=== PATIENT | female | born 1955 ===

== ENCOUNTER 2018-03-03 05:24 | Day surgery (SDC) | payer MEDICARE, MEDICAID ==
[2018-03-03] VITALS (11 sets, daily range): BP systolic 111–146; BP diastolic 56–93
[~2018-03-03] VITALS: Ht 152.4 cm; Wt 92.5 kg
[~2018-03-03 05:24] MED LIST: ALLOPURINOL300 M1 ORAL; BENICAR HCT 401 EAC1 ORAL; CARVEDILOL25 MG ORAL; COLCRYS0.6 M1 PO; JANUVIA25 MG ORAL; PLAVIX75 MG ORAL; TRULICITY1.5 MG/0.5 SQ; ZOCOR20 M1 ORAL
[2018-03-03] MEDS ORDERED: fentaNYL 100 mcg/2 mL IV ONE (07:00)
[2018-03-03] MEDS ORDERED: Midazolam 2mg/2ml Inj ONE (07:00)
[2018-03-03] MEDS ORDERED: cefOXitin Sod 1 GM in D5W 55 ML IVPB ONE (07:00)
[2018-03-03] MEDS ORDERED: Lidocaine 1% MPF 10mg/ml 5ml ONE (07:01)
[2018-03-03] MEDS ORDERED: Ketorolac 30mg Inj ONE ×2 (07:01→07:11)
[2018-03-03] MEDS ORDERED: Propofol 200mg/20ml IV ONE (07:01)
[2018-03-03] MEDS ORDERED: Dyna-Hex 2% Top Sol 2oz TOPIC ONE (07:04)
[2018-03-03] MEDS ORDERED: cefOXitin 1gm Inj ONE (07:04)
[2018-03-03] MEDS ORDERED: NS Irrig 1000ml ONE (07:30)
[2018-03-03] MEDS ORDERED: Sterile Water For Irrig 2000ml IRRIG ONE (07:30)
[2018-03-03] MEDS ORDERED: LR 1000ml ONE (07:30)
--- NOTE | 2018-03-03 07:44 | Anethesia Preoperative Eval ---
Anesthesia Pre-op PMH/ROS General Date of Evaluation: Mar 03, 2018 Time of Evaluation: 07:38 Anesthesiologist: Mark ASA Score: ASA 3 Mallampati Score Class I : Soft palate, uvula, fauces, pillars visible Class II: Soft palate, uvula, fauces visible Class III: Soft palate, base of uvula visible Class IV: Only hard plate visible Mallampati Classification: Class III Surgeon: Ambrosio Diagnosis: Postmenopausal bleeding Surgical Procedure: D&C Hysteroscopy Anesthesia History: none Social History: smoking - h/o Family History: no anesthesia problems Allergies: Coded Allergies: IODINE (Verified Allergy, Severe, "passed out", 03/02/18) Medications: see eMAR Patient NPO?: Yes Past Medical History Cardiovascular: Reports: HTN; Denies: CAD, NC, valve dz, arrhythmia, other Pulmonary: Reports: SAYRA; Denies: asthma, COPD, other Gastrointestinal/Genitourinary: Reports: GERD, CRI, other; Denies: ESRD Neurologic/Psychiatric: Reports: depression/anxiety; Denies: dementia, CVA, TIA, other Endocrine: Reports: DM - poorly controlled; Denies: hypothyroidism, steroids, other HEENT: Reports: cataract (L), cataract (R) - sp Sx; Denies: glaucoma, [place] (L), [place] (R), other Hematology/Immune: Reports: bleeding disorder - anticoagulated on plavix; Denies: anemia, DVT, other Musculoskeletal/Integumentary: Reports: OA; Denies: RA, DJD, DDD, edema, other Other: obesity PMH Narrative: as above PSxH Narrative: see H&P Anesthesia Pre-op Phys. Exam Physician Exam Last Vital Signs Date Time Temp Pulse Resp B/P (MAP) Pulse Ox O2 Delivery O2 Flow Rate FiO2 03/03/18 05:54 98.4 77 17 138/84 98 Room Air Constitutional: NAD Neurologic: CN 2-12 intact Cardiovascular: RRR, no M/R/G Respiratory: CTA Gastrointestinal: other - obesity Airway Exam Mallampati Score: Class III MO: limited Neck: short ROM: limited Teeth: intact Dentures: no upper, no lower Anesthesia Pre-op A/P Labs see chart Studies Pre-op Studies: EKG - SR Risk Assessment & Plan Assessment: ASA 3 Plan: GA with LMA Status Change Before Surgery: No Pre-Antibiotics Drug: Cefoxetin Given Within 1 Hr of Incision: Yes Time Given: 07:50 Mandeep Flores MD Mar 03, 2018 07:44
--- NOTE | 2018-03-03 07:56 | Pre-Procedure Note/Attestation ---
Pre-Procedure Note/Attestation Complete Prior to Procedure Planned Procedure: not applicable Procedure Narrative: Hysteroscopy, dilation and curettage Indications for Procedure Pre-Operative Diagnosis: endometrial hyperplasia Attestation I attest that I discussed the nature of the procedure; its benefits; risks and complications; and alternatives (and the risks and benefits of such alternatives ), prior to the procedure, with the patient (or the patient's legal veterans service representative). I attest that, if there was a reasonable possibility of needing a blood transfusion, the patient (or the patient's legal veterans service representative) was given the [facility] standardized written summary, pursuant to the Joe Natalie Blood Safety Act ([place] Health and Safety Code # 1645, as amended). I attest that I re-evaluated the patient just prior to the surgery and that there has been no change in the patient's H&P, except as documented below: Laura Valente MD Mar 03, 2018 07:56
[2018-03-03] MEDS ORDERED: HYDROmorphone 1mg/ml Carpuject SUBQ PRN (08:00)
[2018-03-03] MEDS ORDERED: Norco 5mg/325mg tab ORAL PRN (08:00)
[2018-03-03] MEDS ORDERED: Tylenol #3 tab (300mg/30mg) ORAL PRN (08:00)
[2018-03-03] MEDS ORDERED: Metoclopramide 10mg/2ml Inj IVP PRN (08:00)
[2018-03-03] MEDS ORDERED: D5 1/2NS 1,000 ML IV SCH (08:00)
[2018-03-03] MEDS ORDERED: DiphenhydrAMINE 50mg/ml Inj IVP PRN ×2 (08:00→08:15)
[2018-03-03] MEDS ORDERED: LR 1000ml 1,000 ML IVLG SCH (08:11)
[2018-03-03] MEDS ORDERED: Meperidine 50mg/ml Inj(FOR RIGORS ONLY) IV PRN (08:15)
--- NOTE | 2018-03-03 08:41 | Brief Operative Note ---
Immediate Post Operative Note Operative Note Pre-op Diagnosis: endometrial hyperplasia Procedure: Dilation and curettage, hysteroscopy Post-op Diagnosis: same Surgeon: yissel Anesthesiologist: severiano Anesthesia: general Specimen: yes - emc and ecc Complications: none Condition: stable Fluids: crystalloid Estimated Blood Loss: minimal Drains: none Implant(s) used?: No Laura Valente MD Mar 03, 2018 08:41
--- NOTE | 2018-03-03 08:51 | Immediate Post-Op Evaluation ---
Immediate Post-Op Evalulation Immediate Post-Op Evalulation Procedure: D&C Hysteroscopy Date of Evaluation: Mar 03, 2018 Time of Evaluation: 08:50 IV Fluids: 600 Blood Products: none Estimated Blood Loss: min Urinary Output: none Blood Pressure Systolic: 142 Blood Pressure Diastolic: 74 Pulse Rate: 68 Respiratory Rate: 20 O2 Sat by Pulse Oximetry: 99 Temperature (Fahrenheit): 97.8 Pain Score (1-10): 1 Nausea: No Vomiting: No Complications none Patient Status: reacts, patent, none Hydration Status: adequate Mandeep Flores MD Mar 03, 2018 08:51
--- NOTE | 2018-03-03 10:30 | Operative Note - Dictated ---
DATE OF OPERATION: 03/03/2018 PREOPERATIVE DIAGNOSES: Endometrial hyperplasia, obesity. POSTOPERATIVE DIAGNOSES: Endometrial hyperplasia, obesity. PROCEDURE: D and C, hysteroscopy. SURGEON: Laura Valente M.D. ANESTHESIOLOGIST: Mandeep Flores M.D. ANESTHESIA: General LMA. ESTIMATED BLOOD LOSS: Minimal. PROCEDURE IN DETAIL: After ensuring informed consent, the patient was taken to the operating room. General anesthesia was induced. The patient was sterilely prepped and draped. Weighted speculum was placed in the vagina. Cervix was completely stenotic. The cervix was first dilated with lacrimal probes and what felt like cervical passage was encountered, that was dilated with Hunter dilators to approximately 6 mm. Next, hysteroscope was placed inside the cavity. It was very anterior flexed, so hysteroscope was not passed inside the endometrial cavity. However, with the probe, I did feel like it was endometrial cavity and there was no perforation and fractional curettage was performed gently. There was no bleeding and two specimens were obtained one ECC and one EMC. Hysteroscope was withdrawn. All instruments were removed from the vagina. All instruments and lap count was correct x2. Two specimens were sent to pathology. Laura Valente M.D. DR: TITO JOB#: [id number] CC:
--- NOTE | 2018-03-03 12:10 | 48 Hour Post Anesthesia Eval ---
Post Anesthesia Evaluation Procedure: D&C Hysteroscopy Date of Evaluation: Mar 03, 2018 Time of Evaluation: 11:02 Blood Pressure Systolic: 111 0: 56 Pulse Rate: 68 Respiratory Rate: 20 Temperature (Fahrenheit): 97.5 O2 Sat by Pulse Oximetry: 98 Airway: patent Nausea: No Vomiting: No Pain Intensity: 2 Hydration Status: adequate Cardiopulmonary Status: stable Mental Status/LOC: patient returned to baseline Follow-up Care/Observations: n/a Post-Anesthesia Complications: none Follow-up care needed: ready to discharge Mandeep Flores MD Mar 03, 2018 12:10
== END 2018-03-03 10:40 | disposition home or self-care (01) ==
LOC: SUR 05:24
DX: N85.00 Endometrial hyperplasia, unspecified (principal); E66.9 Obesity, unspecified; E11.22 Type 2 diabetes mellitus with diabetic chronic kidney disease; I12.9 Hypertensive chronic kidney disease with stage 1 through stage 4 chronic kidney disease, or unspecified chronic kidney disease; N18.9 Chronic kidney disease, unspecified; E78.5 Hyperlipidemia, unspecified; F32.9 Major depressive disorder, single episode, unspecified; F41.9 Anxiety disorder, unspecified; K21.9 Gastro-esophageal reflux disease without esophagitis; M19.90 Unspecified osteoarthritis, unspecified site; Z79.01 Long term (current) use of anticoagulants
CPT/HCPCS: 58558; 82962; J0694; J1885; J2250; J2704; J3010; 94003; 94150